=== PATIENT | male | born 1945 | race Caucasian/White ===

== ENCOUNTER 2016-08-17 17:25 | Inpatient (IN) | payer MEDICARE, OTHER ==
[~2016-08-17] VITALS: Ht 177.8 cm; Wt 101.9 kg
--- NOTE | ~2016-08-17 | CON ---
[place], [place] REPORT OF CONSULTATION NAME: CHASIDY RABAGO JR UNIT #: [id number] ROOM: [facility] DOCTOR: DANIELLE MALIK MD BIRTHDATE: [birth year] DOS: 08/18/2016 CHIEF COMPLAINT: "Morning". HISTORY OF PRESENT ILLNESS: This is a 71-year-old white male known to me from a previous psychiatric admission to the [facility] as well as his continued stay at [facility]. The patient has been increasingly more labile and agitated. He has been striking out and resistive to care. Because of the significant alteration in mental status, he was sent in to the Emergency Room at [facility] for medical clearance to be admitted eventually to the [facility]; however, when he was there, he was found to have a right submandibular mass and met sepsis criteria, so he was subsequently admitted to a medical floor. PAST MEDICAL HISTORY: Remarkable for hyperlipidemia, hypertension, vitamin D deficiency, dementia and a lengthy history of schizophrenia. MENTAL STATUS: Mental status this morning was somewhat limited and that he was resting in bed. He did awake just to say morning, but then fell back to sleep. There was no agitation or aggression. There was no mood lability noted. DIAGNOSES: Schizoaffective disorder and Alzheimer dementia. PLAN: I will restart him back on the Exelon patch 4.6 mg a day and start him on low-dose Latuda 40 mg at bedtime. I do not want to see him to compensate psychiatrically given his lengthy history. I will follow along regarding the workup of the sepsis and the submandibular mass and will re-intervene if need be. DANIELLE MALIK MD CM:CONSTR:REPORT OF CONSULTATION 0923 08/19/16 0137 interface
--- NOTE | ~2016-08-17 | PR ---
[place], [place] PROGRESS NOTE NAME: [id number] UNIT #: [id number] ROOM: [facility] DOCTOR: ANANYA EL MD,RAY BIRTHDATE: [birth year] DOS: 08/24/2016 PULMONARY PROGRESS NOTE SUBJECTIVE: The patient has been noted comfortable at this time, but noted with decreased mentation. He does open his eyes but there is no verbal communication. He has not been noted any acute hemodynamic instability. He has been successfully liberated from mechanical ventilator yesterday as well. OBJECTIVE: VITAL SIGNS: The patient was noted as normal temperature, respiratory rate of 20-24, heart rate 85-93, blood pressure 157/90-165/96. Intake is 820, the output was recorded 3600 mL, pulse oxygen saturation on 3 liters nasal cannula 94% saturation. The oxygen requirement increased from yesterday for this patient from 2 liters to 3 liters nasal cannula. HEENT: The patient extubated, edentulous status, status post extraction of the teeth. NECK: Supple. CARDIOVASCULAR SYSTEM: S1, S2 audible. LUNGS: Noted with [id number]-[id number] decreased breath sounds bilaterally. ABDOMEN: Soft, nontender. LABORATORY DATA: Arterial blood gas of the patient, which was done for this patient, pH of 7.48, pCO2 of 34.8, pO2 of 81.5 on 3 liter nasal cannula. CBC of the patient on 08/24/2016, WBC count 6.9, hemoglobin 12.3, hematocrit 36.8, platelet count was noted as normal. The chest x-ray of the patient that I ordered for the patient today assessment of the patient's current hypoxia noted with basilar area of atelectasis. IMPRESSION: 1. Interval development of area of atelectasis due to suboptimal secretion clearing for the patient with mucus impaction post-liberation from mechanical ventilation. 2. Acute hypoxic respiratory failure, which has been noted secondary to the above. PLAN OF TREATMENT: Monitor respiratory status closely. Use of the BiPAP for this patient if necessary in case of progressive worsening of the respiratory status will be done. Secretion ____ of the patient bronchial pulmonary toilet. Supportive care. Aspiration precaution for this patient because of decreased mentation. Avoid any medication resulting in change in the mental status. [place], [place] PROGRESS NOTE NAME: GEM STEELECHASIDY C UNIT #: [id number] ROOM: [facility] DOCTOR: RAY SIMON MD BIRTHDATE: [birth year] RAY HARE MD CM:PNTRANS [id number] RAY EL MD 08/25/16 0850 interface
--- NOTE | ~2016-08-17 | CON ---
[place], [place] REPORT OF CONSULTATION NAME: [id number] UNIT #: [id number] ROOM: 408 DOCTOR: DAVIDSON YBARRAOMAR BIRTHDATE: [birth year] DOS: 08/18/2016 ATTENDING PHYSICIAN: Dr. Mccallum. REASON FOR CONSULTATION: Right neck mass. HISTORY OF PRESENT ILLNESS: The patient is a 71-year-old white male with an underlying history of schizophrenia and dementia. The patient is a resident at a local senior care. He was brought to [facility] because of increased confusion and hallucinations. The patient was essentially nonverbal on presentation. He was noted to have a right submandibular mass. CT scan of the soft tissues of the neck was performed. The scan was without IV contrast. The scan demonstrated a mass in the right submandibular space with inflammatory changes and lymphadenopathy in the right neck. Differential diagnosis was neoplasm versus abscess. The patient did have a mild leukocytosis at presentation. He also had dehydration and protein-calorie malnutrition. The patient did meet sepsis criteria and has been treated with IV Levaquin and Unasyn. PAST MEDICAL HISTORY: Includes a history of schizophrenia, dementia, hypertension, hyperlipidemia, vitamin D deficiency, chronic pain. PAST SURGICAL HISTORY: There is no documented history of prior surgery. CURRENT MEDICATIONS: Latuda, levofloxacin, Unasyn, Exelon, Lovenox, and Zofran. ALLERGIES: LISINOPRIL. PHYSICAL EXAMINATION: VITAL SIGNS: The patient was examined on the fourth floor at bedside. His temperature is 98 axillary, pulse 91, respiratory rate 20, and blood pressure 133/95. GENERAL: The patient is nonverbal. HEENT: Examination of the oral cavity shows extremely poor dentition and very dry mucosa consistent with dehydration. The ears are clear. Nose shows no polyps or mucopurulence. NECK: Exam of the neck shows a right submandibular mass with mild erythema of the overlying skin. It is tender on palpation is suspicious for an underlying inflammatory process such as infection/abscess. HEART: Regular rate and rhythm. LUNGS: Clear to auscultation. IMPRESSION: Right submandibular space infectious process, most likely of dental etiology. RECOMMENDATIONS: I have spoken with the admitting service and recommended we proceed with an attempted incision and drainage of this right submandibular process. In addition, the patient should continue his current IV antibiotic regimen. The patient will benefit from dentistry consultation for full oral extractions because of his extremely poor dentition. [place], [place] REPORT OF CONSULTATION NAME: GEM STEELECHASIDY Nishi UNIT #: [id number] ROOM: [facility] DOCTOR: OMAR CEDEÑO MD BIRTHDATE: [birth year] OMAR CEDEÑO MD CM:CONSTR:REPORT OF CONSULTATION 1242 08/18/16 1304 interface
--- NOTE | ~2016-08-17 | CON ---
[place], [place] REPORT OF CONSULTATION NAME: CHASIDY RABAGO JR UNIT #: [id number] ROOM: 409 DOCTOR: VIJAY CHAPMAN ED.D (THEA) BIRTHDATE: [birth year] DOS: 08/27/2016 HISTORY OF PRESENT ILLNESS: The patient is a 71-year-old male referred by the hospitalist for competency evaluation. At the present time, competency patient is on the [facility], [facility]. This patient is presently a resident at [facility] and [place], [place]. PAST MEDICAL HISTORY: Pertinent for major neurocognitive disorder-dementia, submandibular mass, hypertension, diabetes mellitus type 2, sepsis and paranoid schizophrenia. MEDICATIONS: Include Lovenox, Zofran, potassium chloride, Lasix, amlodipine, Exelon, Apresoline, and albuterol. I do that I am unaware of any substance abuse issues with this patient. At the present time, this patient is awake and somewhat alert, but does not speak whatsoever. He cannot follow simple commands. He is clearly not competent to make informed healthcare decisions at this time. According to his chart, there is a healthcare power of occupational therapist assistant for financial issues, but none for healthcare. At the present time, it appears that an emergency guardianship should be completed for this patient for healthcare decisions. DIAGNOSES: 1. Major neurocognitive disorder -- Alzheimer's disease. 2. History of paranoid schizophrenia. Thank you very much for this consult. VIJAY CHAPMAN ED.D CM:CONSTR:REPORT OF CONSULTATION 0959 08/28/16 0100 interface
--- NOTE | ~2016-08-17 | CON ---
[place], [place] REPORT OF CONSULTATION NAME: CHASIDY RABAGO JR UNIT #: [id number] ROOM: [facility] DOCTOR: CHEPE WEISSDARELLE BIRTHDATE: [birth year] DOS: When I presented for consultation, the patient was in surgery. I went into the OR and did a quick intraoral evaluation. On exam, nonrestorable maxillary and mandibular dentition with multiple teeth caries to the gumline. The patient was positive for purulence from multiple sulcular areas. Discussed the patient's treatment with the patient's son, recommended full mouth extraction, the patient's son agreed. We will plan on reviewing this in my office, schedule to get the patient in to surgery on 08/19/2016. We will contact the floor to set up a time for surgery. WILMAN MO DMD CM:CONSTR:REPORT OF CONSULTATION 0819 08/23/16 0653 interface
--- NOTE | ~2016-08-17 | CON ---
[place], [place] REPORT OF CONSULTATION NAME: CHASIDY RABAGO JR [facility] [id number] UNIT #: [id number] ROOM: [facility] DOCTOR: DANIELLE MALIK MD BIRTHDATE: [birth year] DOS: 08/24/2016 PSYCHIATRIC CONSULT CHIEF COMPLAINT: The patient was nonverbal. HISTORY OF PRESENT ILLNESS: This is a 71-year-old white male who is known to me from a previous [facility] admission as well as his continued stay at the [facility]. The patient was to be admitted to the [facility] due to increased agitation and violent outbursts while at the long-term care facility, but he was to be screened through the Emergency Room at [facility] and found to have a submandibular mass and was ultimately admitted to the medical floor for further treatment. This was later discovered to be a significant dental abscess. The patient has been improving medically, but has now been very nonverbal. He will stare off into space and track and make eye contact, but has not been able to or willing to speak. PAST MEDICAL HISTORY: Remarkable for hyperlipidemia, hypertension, vitamin D deficiency, chronic pain, and schizoaffective disorder. MENTAL STATUS: The patient is alert and oriented to self. He does make eye contact. I attempted multiple times to engage him in questions, very simple questions, yes or no questions, and all he did would be track me in the room as I move from side to side. It is unclear whether or not this is catatonia, severe paranoia or he is still medically compromised and is not able to speak. DIAGNOSIS: Schizoaffective disorder. PLAN: Knowing his baseline and the severity of his schizophrenia, I am going to go ahead and reinstitute an antipsychotic. Given the fact that he may not be totally compliant with it, I will start Risperdal M-Tab 1 mg twice daily. He had been on Invega Sustenna in the past, so this is a derivative of the Invega. He should tolerate this well. I will go ahead and push the Exelon patch from 4.6 to 9.5 mg a day to combat some of the symptoms of the dementia. Once you feel that he is medically cleared, if he remains in this state of being nonverbal, I would transfer him down to the [facility] for further evaluation and treatment. DANIELLE MALIK MD CM:CONSTR:REPORT OF CONSULTATION 0931 08/25/16 0148 interface
--- NOTE | ~2016-08-17 | PR ---
[place], [place] PROGRESS NOTE NAME: CHASIDY RABAGO JR UNIT #: [id number] ROOM: [facility] DOCTOR: RAY SIMON MD BIRTHDATE: [birth year] DOS: 08/25/2016 PULMONARY PROGRESS NOTE SUBJECTIVE: The patient was still noted with change in mental status, responsible, arousable to vocal commands, but does not have any verbal communication, remains mute. OBJECTIVE: VITAL SIGNS: Showed normal temperature, respiratory rate of 24-33. The heart rate ranges between 97 and 112, blood pressure 155/81, 156/97. The pulse oxygen saturation for the patient recorded on 2 liters nasal cannula, 98% saturation. HEENT: Examination shows head was atraumatic. Eyes nonicterus. NECK: Supple. CARDIOVASCULAR: S1, S2 is audible. LUNGS: The patient was noted without any wheeze or crackles at the present time. ABDOMEN: Soft and nontender. LABORATORY DATA: CBC of this morning, hemoglobin 13.9, hematocrit 40.7, WBC count normal, platelet count was normal. CMP this morning, BUN 27, creatinine was normal, glucose 224. Potassium 3.4. Arterial blood gas, pH of 7.47, pCO2 of 33.9, pO2 of 131. IMPRESSION: The patient who has been currently noted with acute hypoxic respiratory failure, intermittent tachypnea, change in mental status, status post liberation from mechanical ventilator with basilar area of atelectasis with some fluid formation for the patient was noted secondary to hypoventilatory status. PLAN OF TREATMENT: The patient has been ordered the BiPAP with the settings of 14/8 to maintain saturation 90% or greater. Aspiration precautions. Other supportive therapy, plan and management. Continue monitoring the current pulmonary status. Usual care. Other supportive care to be continued. Usual medical therapies. Continue psychiatric evaluation and followup. [place], [place] PROGRESS NOTE NAME: CHASIDY RABAGO JR UNIT #: [id number] ROOM: [facility] DOCTOR: RAY SIMON MD BIRTHDATE: [birth year] RAY HARE MD CM:PNTRANS 1127 RAY EL MD 08/26/167 interface
--- NOTE | ~2016-08-17 | PR ---
[place], [place] PROGRESS NOTE NAME: CHASIDY RABAGO JR UNIT #: [id number] ROOM: 409 DOCTOR: RAY SIMON MD BIRTHDATE: [birth year] DOS: 08/27/2016 PULMONARY PROGRESS NOTE SUBJECTIVE: He has been comfortably resting on the bed. The mental status has been noted variable. The patient did open his eyes with vocal commands this morning, does have signs of respiratory distress, oxygen supplementation given by the nasal cannula. OBJECTIVE: VITAL SIGNS: Shows normal temperature, respiratory rate of 20, heart rate 105, blood pressure 150/90. Pulse oxygen saturation on 3 liters nasal cannula 96% saturation. HEENT: Examination shows no new changes. NECK: Supple. CARDIOVASCULAR: S1, S2 is audible. LUNGS: The patient was noted without any wheezing or crackles at this time. ABDOMEN: Soft, nontender. LABORATORY DATA: This morning, the arterial blood gas, pH of 7.44, pCO2 of 38, pO2 of 98.6. BMP this morning, BUN 37, creatinine 0.65, glucose 143. CBC of the patient essentially noted as grossly normal. IMPRESSION: 1. The patient with change in his mental status. The patient's decreased mentation still has been noted unchanged. 2. The patient with acute respiratory failure, which has been noted stable. 3. Acute dysphagia as well. 4. Status post liberation from mechanical ventilation. PLAN OF TREATMENT: No changes from the pulmonary standpoint. Continue the patient on current therapy, plan of management as previously. Monitor mental status. Continue with the known infection for this patient. [place], [place] PROGRESS NOTE NAME: CHASIDY RABAGO JR Nishi UNIT #: [id number] ROOM: 409 DOCTOR: RAY SIMON MD BIRTHDATE: [birth year] RAY HARE MD CM:PNTRANS [phone] RAY EL MD 08/28/16 032 interface
--- NOTE | ~2016-08-17 | O ---
[place], [place] OPERATIVE NOTE NAME: CHASIDY RABAGO JR UNIT #: [id number] ROOM: [facility] DOCTOR: EFRA LINK MD BIRTHDATE: [birth year] DOS: 08/18/2016 PREOPERATIVE DIAGNOSES: 1. Sepsis. 2. Right submandibular mass. 3. Dental abscess. POSTOPERATIVE DIAGNOSES: 1. Sepsis. 2. Right submandibular mass. 3. Dental abscess. PROCEDURE: Exploration of right submandibular region with biopsy of right submandibular mass. SURGEON: Efra Link MD ANESTHESIA: General endotracheal. ESTIMATED BLOOD LOSS: 25 mL. SPECIMENS: One specimen of the right submandibular mass was submitted to pathology for histologic analysis. DRAINS: None. COMPLICATIONS: None. INDICATIONS: The patient is a 71-year-old white male who is a intermediate resident, who was brought to [facility] for psychiatric evaluation and possible admission to the Behavioral Health Unit. During the patient's evaluation in the Emergency Department, he was noted to be somewhat obtunded and had a 3 cm right submandibular mass identified on CT scan. The patient's history was consistent with increasing combative aggressive behavior and mental status changes. The patient did have a leukocytosis and was admitted to the hospital on IV antibiotics for sepsis of undetermined etiology. CT scan of soft tissues of the neck demonstrated a heterogeneous mass in the right submandibular space with associated inflammatory changes and skin thickening. The patient had right-sided cervical lymphadenopathy. There radiological differential diagnosis included neoplasm versus abscess. Decision was made to explore the right submandibular region. OPERATIVE FINDINGS AND PROCEDURE: The patient was taken to the OR where general endotracheal anesthesia was performed. The right neck was prepped and draped in a standard sterile fashion. A 4 cm incision was made in the right submandibular region through skin and subcutaneous tissue. Dissection was continued until the submandibular mass was identified. A biopsy was obtained and submitted to pathology for histologic analysis. There was no silvino purulent or evidence of abscess. Minor bleeding was controlled with electrical cautery. Because of the minimal blood loss, no drain was placed. The wound was closed in a layered [place], [place] OPERATIVE NOTE NAME: CHASIDY RABAGO JR UNIT #: [id number] ROOM: [facility] DOCTOR: EFRA LINK MD BIRTHDATE: [birth year] fashion using 3-0 Vicryl and 5-0 monofilament and a sterile dressing was applied. Dentistry was also consulted because of the patient's poor dentition and suspected dental abscess. My recommendation was that the patient be evaluated by Dr. Kevon Bashir for full dental extraction. At the end of my portion of the case, the patient was subsequently examined by Dr. Bashir and consideration was given for dental extractions. The patient will be left intubated and admitted to the Intensive Care Unit overnight and IV antibiotic therapy will continue. EFRA LINK MD CM:OPRECORD:OPERATIVE NOTE [id number] EFRA LINK MD 08/18/16 1835 interface
--- NOTE | ~2016-08-17 | PR ---
[place], [place] PROGRESS NOTE NAME: CHASIDY RABAGO JR [facility] #: [id number] UNIT #: [id number] ROOM: [facility] DOCTOR: ANANYA EL MD,RAY BIRTHDATE: [birth year] DOS: 08/20/2016 PULMONARY CRITICAL CARE MANAGEMENT SUBJECTIVE: The patient remains on mechanical ventilator, underwent a complete excision of the teeth. He has been noted some bleeding which has been noted intermittently. The patient has not been noted with any symptoms of respiratory distress. The patient continued on mechanical ventilation at this time. Feeding for the patient started, which has been tolerated by the patient for the nutrition support. Ventilator bundle management was continued. No hemodynamic instability was noted. OBJECTIVE: VITAL SIGNS: Normal temperature, respiratory rate 20-16, heart rate 95-86, blood pressure 130/86-124/63. Intake for the patient recorded as 3200 mL, output 1100 mL, pulse oxygen saturation 35% oxygen 98% saturation. HEENT: Shows head was atraumatic. Eyes nonicterus. NECK: Supple. CARDIOVASCULAR: S1, S2 audible. LUNGS: Remains clear. ABDOMEN: Soft, nontender. EXTREMITIES: Show no edema. LABORATORY DATA: CBC today: WBC count 10, hemoglobin 12.5, hematocrit 37.8, platelet count for the patient 167,000. The anatomical pathology for this patient of the current excision of the mass noted with inflammatory tissue without any evidence of malignancy described by the pathologist report for the biopsy for this patient from the right mandibular area. Arterial blood gas this morning, assist control modem pH of 7.40, pCO2 of 36, pO2 of 180 on 45% oxygen. BMP is noted with normal BUN and creatinine. Potassium noted 3.3, mildly decreased. Urine culture showed no bacterial growth. The chest x-ray done this morning for the patient was reviewed and shows endotracheal tube in appropriate position without any acute pulmonary infiltration. IMPRESSION: The patient who has been currently noted stable at the present time for this patient with acute respiratory failure secondary upper airway surgery for this patient at this time including excision of the mass and biopsy for the patient of the right mandible area as well as complete excision of the teeth yesterday. Some bleeding has been noted in the mouth intermittently, but gradual reduction has been noted for the patient in the last 24 hours after surgery. Basilar area of atelectasis of the patient has been resolved. PLAN OF TREATMENT: The patient will remain intubated for the next 24 hours. The assessment for the patient has been already done by the dental surgeon. The bleeding should stop sometime later today for the patient and probably will be considered most likely safe for liberation from mechanical ventilation after that, possibly in the morning. The patient will be monitored closely. The ventilator bundle management to continue in progress. Continue the feeding for this patient as well. Usual care. All other supportive therapy, plan of management. [place], [place] PROGRESS NOTE NAME: CHASIDY RABAGO JR UNIT #: [id number] ROOM: [facility] DOCTOR: ANANYA EL MD,RAY BIRTHDATE: [birth year] Total time for pulmonary critical evaluation and management to be added in the note for the patient is 33 minutes. RAY HARE MD CM:PNTRANS 1413 [id number] RAY EL MD 08/21/16 0537 interface
--- NOTE | ~2016-08-17 | O ---
[place], [place] OPERATIVE NOTE NAME: CHASIDY RABAGO JR Nishi UNIT #: [id number] ROOM: [facility] DOCTOR: CHEPE WEISSWILMAN BIRTHDATE: [birth year] DOS: 08/19/2016 PREOPERATIVE DIAGNOSES: 1. Nonrestorable maxillary and mandibular dentition. 2. Dementia. 3. Severe stomatitis. POSTOPERATIVE DIAGNOSES: 1. Nonrestorable maxillary and mandibular dentition. 2. Dementia. 3. Severe stomatitis. ANESTHESIA: General anesthesia with endotracheal intubation. FLUIDS: 1200 mL. ESTIMATED BLOOD LOSS: 300 mL. COMPLICATIONS: None. CONDITION: To ICU, stable. DESCRIPTION OF PROCEDURE: The patient was brought to the OR and placed in supine position. IV and EKG lines were placed. Endotracheal intubation and general anesthesia was administered. The patient was prepped and draped for oral procedures. Risks and benefits were explained to the patient's son prior to surgery. Clinical exam and x-rays taken determined nonrestorable maxillary and mandibular dentition, extensive purulence from multiple teeth that are carious to the gumline. PROCEDURES PERFORMED: Complete extractions of teeth numbers 2, 4, 5, 6, 7, 8, 9, 10, 11, 12, 13, 14, 18, 21, 22, 23, 24, 25, 26, 27, 28, 29 31. Full-thickness flaps in all 4 quadrants with moderate alveoplasty. Teeth numbers 12 and 5 fractured with root tip removal as well as tooth number 14 with complete root retrieval. Gelfoam placed in all sockets and sutured with 4-0 chromic. Lavaged x 2. Throat pack removed. The patient left the OR in good condition and went to the ICU. [place], [place] OPERATIVE NOTE NAME: GEM STEELENATALIECHASIDY Nishi UNIT #: [id number] ROOM: [facility] DOCTOR: CHEPE WEISSWILMAN BIRTHDATE: [birth year] WILMAN MO DMD CM:OPRECORD:OPERATIVE NOTE 1725 19 WILMAN CHEPE WEISS 08/23/16 0653 interface
--- NOTE | ~2016-08-17 | PR ---
[place], [place] PROGRESS NOTE NAME: CHASIDY RABAGO JR [facility] #: [id number] UNIT #: [id number] ROOM: [facility] DOCTOR: RAY SIMON MD BIRTHDATE: [birth year] DOS: 08/23/2016 PULMONARY CRITICAL CARE EVALUATION AND MANAGEMENT SUBJECTIVE: The patient was seen and examined on 08/23/2016. The patient's condition was assessed. The patient discussed with the nursing staff for this patient. He has been continued on mechanical ventilation. The patient has not been attempted for liberation from mechanical ventilation. There was no bleeding noted in the mouth. The patient has not been noted in any hemodynamic instability as well. Low-dose Diprivan. The patient was continued on 30 mcg per kilogram of intravenous Diprivan administration at this time. With the sedation vacation, the mental status has been described to be normal. OBJECTIVE: VITAL SIGNS: For the patient which has been recorded shows temperature was noted as normal, respiratory rate 15-18, heart rate 92-91, blood pressure 153/91-142/83. Intake for the patient recorded as 2800 mL, output 1300 mL, positive fluid balance 1500 mL. Pulse oxygen saturation 93% saturation recorded on 30% oxygen supplementation. HEENT: The patient remained orally intubated. There was no bleeding. Dental status after extraction of teeth the nasogastric tube is in place. CARDIOVASCULAR: S1, S2 is audible. LUNGS: The patient was noted without any wheezing or crackles at the present time. ABDOMEN: Flat, soft, nontender. Bowel sounds present. LABORATORY DATA: Arterial blood gas yesterday, the patient noted with pH of 7.42, pCO2 of 41, pO2 of 105. ABG this morning, assist control mode same satting with 30% oxygen, pH of 7.44, pCO2 of 38, pO2 of 99.3. CBC this morning: WBC count was normal at 5.8, hemoglobin 12, hematocrit 37.0, platelet count of the patient noted 197,000. CMP this morning, normal BUN and creatinine. Glucose 265. Albumin 2.3. Chest x-ray of the patient that was done on 08/23/2016 does not show any acute abnormalities. Endotracheal tube and NG tube are noted in appropriate position. IMPRESSION: 1. Acute respiratory failure for this patient, which seem to be stable at this time. 2. Status post extraction of the teeth as well. 3. Biopsy of the patient on the mandibular area noted with inflammatory condition of the skin. 4. Hyperglycemia. The patient with history of diabetes mellitus as well. 5. Suspected moderate protein-calorie malnutrition with reduction in the albumin. PLAN OF TREATMENT: Discontinue sedation completely. Once the patient noted awake, he will be started on CPAP 5, pressure support of 10 for a couple of hours. After that, assess the patient for possible consideration of liberation from mechanical ventilation. No other change in treatment to be continued. Until the patient is extubated, he will be continued on mechanical ventilator [place], [place] PROGRESS NOTE NAME: GEM JRCHASIDY Nishi UNIT #: [id number] ROOM: [facility] DOCTOR: ANANYA EL MD,RAY BIRTHDATE: [birth year] bundle treatment. Usual care. Further care and plan of management for the patient as previously. Usual treatments and therapies. Total time pulmonary critical evaluation and management was 32 minutes. RAY HARE MD CM:PNTRANS [id number] RAY EL MD 08/25/16 1010 interface
--- NOTE | ~2016-08-17 | CON ---
[place], [place] REPORT OF CONSULTATION NAME: CHASIDY RABAGO JR [facility] #: [id number] UNIT #: [id number] ROOM: [facility] DOCTOR: RAY SIMON MD BIRTHDATE: [birth year] DOS: 08/19/2016 PULMONARY CONSULTATION EVALUATION AND MANAGEMENT REQUESTED BY: Hospitalist services. REASON FOR CONSULTATION: Assess the patient for current acute respiratory failure for patient after the biopsy for the patient lymph node for the patient from the area of right mandible and the lymph node excision. HISTORY OF PRESENT ILLNESS: This is a 71-year-old white male for the patient who has been known with psychiatric problem and was treated in the Behavioral Health Unit as well. The patient has been admitted to the hospital for the patient because of increased confusional status with increased lethargy for this patient as well. The patient also noted nonverbal for this patient as well. He has been admitted to the hospital for the patient for further assessment. The patient was also described symptoms of hallucination. He was noted the right mandibular mass for the patient. CT scan of the neck for the patient was performed with intravenous contrast, which is described as a mass which is describing right submandibular space with inflammatory changes and lymphadenopathy in the right neck. Possibility of malignancy versus abscess was considered. The patient underwent a biopsy of the patient of the right mandible for the patient as well as excision of lymph nodes in the neck. The patient has been intubated and procedure performed under general anesthesia. Possibility of upper airway edema for the patient was suspected. The patient was kept on intubation. He was also planned for possibility of extraction of all teeth to be done by the dental surgeon planned for this morning. The patient was started on IV Diprivan, continued on mechanical ventilation at this time. Oxygen supplementation has been decreased for the patient after the arterial blood gas assessment, gradual reduction to 45%. The patient was not noted excessive secretion production from the endotracheal tube were ____ findings of hemoptysis for the patient since post-intubation. Remaining systems could not be reviewed for patient since the patient is intubated currently noted on the mechanical ventilator, remaining history has been essentially obtained for the patient review of the medical record of the patient documentation by the other physician records for the patient for current hospitalization. PAST MEDICAL HISTORY: For the patient was reported as, 1. History of chronic dementia. 2. Schizophrenia and behavioral disorder. 3. Essential hypertension. 4. Hyperlipidemia. 5. Vitamin D deficiency. 6. Chronic pain. 7. History of type 2 diabetes mellitus. 8. History of possible congestive heart failure. 9. History of allergic rhinitis. 10. History of BPH. SURGICAL HISTORY: For the patient was noted as. [place], [place] REPORT OF CONSULTATION NAME: CHASIDY RABAGO JR UNIT #: [id number] ROOM: [facility] DOCTOR: ANANYA EL MD,RAY BIRTHDATE: [birth year] 1. Biopsy of the right mandible for this patient, excision of potential mass for the patient in the right mandible area for this patient and the lymph nodes excision yesterday. 2. Intubation and mechanical ventilation for the patient on 08/18/2016. SOCIAL HISTORY: The patient was not known about tobacco use, alcohol or illicit drug use at the present time. Further history could not be obtained. FAMILY HISTORY: Unknown. MEDICATIONS: Previously from the [facility] were noted use of amantadine, Norvasc, Lipitor, vitamin D, Depakote, Flonase, Lasix, hydralazine, Victoza shots, losartan, metformin, Remeron, Invega, potassium chloride, Seroquel, rivastigmine, Flomax and tobramycin. DRUG ALLERGY HISTORY: ALLERGY TO LISINOPRIL. PHYSICAL EXAMINATION: GENERAL: A 71-year-old white male, currently sedated on the mechanical ventilator. The height for the patient recorded on current admission as 5 feet 10 inches, weight of 224 pounds, BMI 32.2. The patient is currently intubated, noted on mechanical ventilation and effectively sedated. VITAL SIGNS: For the patient shows normal temperature in the last 24 hours, respiratory rate 12-18, heart rate 98-94, blood pressure 139/92-111/79. Pulse oxygen saturation 45% oxygen 98% saturation on assist controlled mode of mechanical ventilation. HEENT: As mentioned, the patient is currently intubated. Poor surgical changes noted in the right mandibular area. Mild swelling at that area was noted. There was no abnormal bleeding. Orogastric tube is in place. CARDIOVASCULAR SYSTEM: S1, S2 is audible. LUNGS: Noted without any wheezing or crackles. Mild decreased breath sounds bilaterally. ABDOMEN: Soft, flat, nontender, bowel sounds present. EXTREMITIES: Show no edema, clubbing or cyanosis. CENTRAL NERVOUS SYSTEM: Could not be examined. The patient was not reported any focal neurologic deficit prior to the current surgery. SKIN: For this patient showed no lesions or rashes. MUSCULOSKELETAL SYMPTOMS: For the patient does not show any obvious major deformities. LABORATORY DATA: Labs on this patient. The CBC of the patient that was done yesterday, WBC count 13.8, hemoglobin, hematocrit and platelet count was normal. The PT/PTT yesterday were noted INR of 1.2 normal, PTT normal. CMP on 08/18 for the patient, BUN 26, creatinine was normal. The troponin for the patient noted as normal. Arterial blood gas of the patient yesterday after the surgery completion in the Intensive Care Unit transfer on 50% oxygen, pH of 7.39, pCO2 of 37, pO2 of 126. Arterial blood gas for this morning on 45% oxygen, pH of 7.41, pCO2 of 34, pO2 of 138. The BMP, BUN and creatinine for the patient was noted as normal. CBC this morning, WBC count of 12.3, hemoglobin 13.7, and hematocrit 41.5. Blood culture for the patient from the 9th for this month, [place], [place] REPORT OF CONSULTATION NAME: CHASIDY RABAGO JR UNIT #: [id number] ROOM: [facility] DOCTOR: ANANYA EL MD,[facility] BIRTHDATE: [birth year] preliminary showed no bacterial growth. Final culture results remains pending. Chest x-ray post-intubation for the patient noted endotracheal tube and the NG tube in appropriate position. CT scan of the neck for the patient on 08/17 reported by the radiologist for the patient report of heterogenous appearing mass of the patient right submandibular space of the patient measured 2.7 x 2.9 cm in size. Skin thickening and fat stranding for the patient were described at level 2 and 3 of the right side with cervical lymph nodes. Lymph node measured 7 mm in size. The submandibular and parotid gland for the patient and the left side of the neck examination noted completely normal. Possibility of abscess versus neoplasm was discussed. IMPRESSION: 1. The patient who has been currently noted with acute hypoxic respiratory failure for the patient after the current surgery and manipulation of the upper neck for this patient and potential edema for the patient. 2. History of chronic dementia for the patient as well with multiple psychiatric and behavioral problems as well. 3. Mild leukocytosis for this patient. 4. Rule out abscess formation and inflammatory changes in the current area with the malignancy of the right mandible. 5. History of type 2 diabetes mellitus, essential hypertension and others as listed in the past history including history of allergic rhinitis. PLAN OF TREATMENT: The patient will be undergoing the other surgical intervention as removal of the teeth for this patient. The patient will remain intubated for the next 24 hours for assessment of the upper airway for the patient to be done tomorrow morning for potential liberation from mechanical ventilation. The feeding will be started for the patient and ventilator bundle management for the patient has been initiated as well. Bronchodilators for the patient if necessary to help mobilize secretion from the airways. Usual care. Other treatment and plan of management for this patient as in progress. Supportive care. Other therapy, plan and management. Addition of Peridex was given for the patient through the mouth as well for this patient as well as a part of the ventilator bundle management. Other care and therapies as in progress. Usual care. Total time for pulmonary critical care evaluation and management was 34 minutes. RAY HARE MD CM:CONSTR:REPORT OF CONSULTATION 1723 08/20/16 1549 interface
--- NOTE | ~2016-08-17 | EKG ---
[place], [place] ELECTROCARDIOGRAM REPORT NAME: CHASIDY RABAGO JR UNIT #: [id number] ROOM: [facility] DOCTOR: FREDDY SERRA MD BIRTHDATE: [birth year] DOS: 08/17/2016 TIME: 1826. FINDINGS: Sinus rhythm with frequent premature atrial contractions, rate of 110, possible previous inferior wall myocardial infarction, poor precordial R wave progression. Abnormal electrocardiogram. FREDDY SERRA MD CM:EKGRPT:ELECTROCARDIOGRAM REPORT [id number] 27 FREDDY SERRA MD
--- NOTE | ~2016-08-17 | PR ---
[place], [place] PROGRESS NOTE NAME: CHASIDY RABAGO JR UNIT #: [id number] ROOM: 409 DOCTOR: RAY SIMON MD BIRTHDATE: [birth year] DOS: 08/26/2016 PULMONARY PROGRESS NOTE SUBJECTIVE: The patient has been noted without any acute respiratory complaints at this time. He has been noted more awake this morning. The patient was noted with dysphagia, was recommended honey thick consistency diet as well. OBJECTIVE: VITAL SIGNS: For the patient, which has been recorded shows the temperature recorded as normal, respiratory rate of 21-24, heart rate of 96, blood pressure 132/88. Pulse oxygen saturation of the patient on 4 L nasal cannula 96% saturation recorded. HEENT: Examination shows head was atraumatic. Eyes nonicterus. NECK: Supple. CARDIOVASCULAR: S1, S2 is audible. LUNGS: The patient was noted without any wheezing or crackles at the present time. ABDOMEN: Soft, nontender. LABORATORY DATA: CT of the chest yesterday shows only small pleural fluid for the patient without any acute pulmonary abnormalities. CT scan of the head for this patient was also done yesterday, was noted without any acute intracerebral problems. IMPRESSION: 1. 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 2. Acute respiratory failure of the patient, status post extubation and liberation from mechanical ventilator with previous dental extraction. 3. Small pleural fluid for the patient secondary to fluid overload. The patient would not require any intervention such as thoracentesis or others. PLAN: Continuation of the supportive therapy, plan and management as in progress. Aspiration precautions with modified diet for dysphagia. [place], [place] PROGRESS NOTE NAME: CHASIDY RABAGO JR UNIT #: [id number] ROOM: 409 DOCTOR: RAY SIMON MD BIRTHDATE: [birth year] RAY HARE MD CM:PNTRANS [id number] RAY EL MD 08/26/16 2311 interface
[2016-08-17 17:25] VITALS: BP 116/93
[~2016-08-17 17:25] MED LIST: ACETAMINOPHEN325 M2 PO; AMANTADINE HCL100 M1 PO; ATORVASTATIN CA10 M1 PO; BENZTROPINE ME0.5 MG PO; BIOTENE ORAL44.3 ML MM; CLEARATADINE10 MG PO; DEPAKOTE DR500 MG PO; DEPAKOTE500 M1 PO; EXELON4.6 MG/24 TD; FLUTICASON0.05 MG/AC NAS; FUROSEMIDE20 M1 PO; GLUCOPHAGE500 M1 PO; HYDRALAZINE10 MG PO; HYDROCODONE BIT1 T11 PO; INVEGA SUSTENN117 MG IM; INVEGA SUSTENN156 MG IM; LACTULOSE10 GM/151 PO; MELATONIN5 M7 PO; MIRTAZAPINE15 M2 PO; NORVASC5 MG PO; OYSTERCAL-D 5001 TAB PO; PERPHENAZINE4 M1 PO; POTASSIUM CHLO10 ME4 PO; REMERON SOLTAB30 MG PO; RISPERIDONE M-TA1 MG PO; SEROQUEL100 MG PO; SEROQUEL200 MG PO; TAMSULOSIN HCL0.4 MG PO; TOBREX OPHTH S2.5 ML OPH; TRIAMTERENE & H1 CAP PO; TRIHEXYPHENIDYL2 M3 PO; VICTOZA 3-PAK6 MG/ML SC; VITAMIN D50000 I3 PO; VITAMIN D50000 UNIT PO
[2016-08-17 18:15] LABS: HEMATOCRIT 46.7 % (42.0-52.0); HEMOGLOBIN 15.9 g/dl (14.0-18.0); MEAN CELL VOLUME 98.5 fl (80.0-94.0); MEAN CORPUSCULAR HGB 33.5 pg (27.0-31.0); MEAN PLATELET VOLUME 11.7 fl (9.6-12.3); PLATELET COUNT AUTOMATED 204 10*3/uL (130-400); RED BLOOD COUNT 4.74 10*6/uL (4.50-5.90); RED CELL DISTRI WIDTH 17.2 % (0-14.5); WHITE BLOOD COUNT 13.3 10*3/uL (4.8-10.8)
[2016-08-17 18:26] LABS: INTERNATIONAL NORM RATIO 1.2 (2.0-3.5); PROTHROMBIN TIME 12.4 SECONDS (9.0-12.4)
[2016-08-17 18:38] LABS: ALBUMIN 2.7 gm/dl (3.1-4.5); BILIRUBIN, TOTAL 0.7 mg/dl (0.2-1.0); BUN 26 mg/dl (7-24); C-REACTIVE PROTEIN 8.56 MG/DL (0-0.3); CARBON DIOXIDE 29 mmol/L (21-32); CHLORIDE 108 mmol/L (98-107); EST GLOM FILT AFRICAN AMERICAN > 60 ml/min; GLUCOSE 114 mg/dL (65-99); POTASSIUM 3.9 mmol/L (3.5-5.1); SGOT/AST 15 IU/L (3-35); SGPT/ALT 18 U/L (12-78); SODIUM 147 mmol/L (136-145); TOTAL PROTEIN 7.6 gm/dL (6.4-8.2)
[2016-08-17 18:39] LABS: ALKALINE PHOSPHATASE 67 U/L (45-117); CKMB 1.7 ng/ml (0.5-3.6); CPK 86 U/L (39-308)
[2016-08-17 18:43] LABS: TROPONIN I < 0.015 ng/ml (<0.045)
[2016-08-17 18:52] LABS: EOSINOPHIL # 0.1 10*3/uL (0-0.4); EOSINOPHILS 1 % (1-4); LYMPHOCYTE # 1.7 10*3/uL (1.3-4.4); MONOCYTE # 2.1 10*3/uL (0.1-1.0); NEUTROPHIL # 9.3 10*3/uL (2.3-7.9); NEUTROPHILS 70 % (47-73); PLATELET SUFFICIENCY NORMAL (NORMAL); TOTAL CELLS COUNTED 100 #CELLS
[2016-08-17 19:27] VITALS: BP 124/95
[2016-08-17 19:50] LABS: BILIRUBIN 1+ (NEGATIVE); BLOOD 2+ (NEGATIVE); CLARITY SL CLOUDY (CLEAR); COLOR YELLOW (YELLOW); GLUCOSE NEGATIVE (NEGATIVE); KETONE TRACE (NEGATIVE); LEUKO ESTERASE NEGATIVE (NEGATIVE); NITRITE NEGATIVE (NEGATIVE); PROTEIN NEGATIVE (NEGATIVE); UROBILINOGEN >= 8.0 E.U./dl (0.2-1.0)
[2016-08-17 20:18] LABS: EPITHELIAL CELLS 0-2; RBC 16-20 rbc/hpf (0-2); URINE REFLEX COMMENT YES (NO)
[2016-08-17 22:50] VITALS: BP 137/69
[2016-08-17] MEDS ORDERED: HALLS COUGH DROPS PO (23:19)
[2016-08-17] MEDS ORDERED: ROBITUSSIN DM 101 OZ PO (23:20)
[2016-08-17] MEDS ORDERED: NOVOFINE DEVI (23:29)
[2016-08-18] VITALS (7 sets, daily range): BP systolic 111–139; BP diastolic 71–95
[2016-08-18 06:19] LABS: HEMATOCRIT 43.1 % (42.0-52.0); HEMOGLOBIN 14.7 g/dl (14.0-18.0); MEAN CELL VOLUME 99.3 fl (80.0-94.0); MEAN CORPUSCULAR HGB 33.9 pg (27.0-31.0); MEAN CORPUSCULAR HGB CONC 34.1 g/dl (33.0-37.0); MEAN PLATELET VOLUME 11.9 fl (9.6-12.3); PLATELET COUNT AUTOMATED 200 10*3/uL (130-400); RED BLOOD COUNT 4.34 10*6/uL (4.50-5.90); RED CELL DISTRI WIDTH 17.1 % (0-14.5); WHITE BLOOD COUNT 13.8 10*3/uL (4.8-10.8)
[2016-08-18 06:32] LABS: HEMOGLOBIN A1c 6.3 % (4.8-5.6)
[2016-08-18 06:45] LABS: ALBUMIN 2.3 gm/dl (3.1-4.5); ALKALINE PHOSPHATASE 60 U/L (45-117); BILIRUBIN, TOTAL 0.7 mg/dl (0.2-1.0); BUN 26 mg/dl (7-24); CARBON DIOXIDE 30 mmol/L (21-32); CHLORIDE 110 mmol/L (98-107); CHOLESTEROL 115 mg/dL (<200); EST GLOM FILT AFRICAN AMERICAN > 60 ml/min; GLUCOSE 99 mg/dL (65-99); HDL CHOLESTEROL 50 mg/dl (40-60); LDL CHOLESTEROL 42 mg/dL (9-159); PHOSPHOROUS 3.5 mg/dL (2.5-4.9); POTASSIUM 3.5 mmol/L (3.5-5.1); SGOT/AST 12 IU/L (3-35); SGPT/ALT 17 U/L (12-78); SODIUM 148 mmol/L (136-145); TOTAL PROTEIN 6.9 gm/dL (6.4-8.2); TRIGLYCERIDES 114 mg/dl (<150); VLDL CHOLESTEROL 23 mg/dL (6-40)
[2016-08-18 06:48] LABS: EOSINOPHIL # 0.1 10*3/uL (0-0.4); EOSINOPHILS 1 % (1-4); LYMPHOCYTE # 1.9 10*3/uL (1.3-4.4); MONOCYTE # 2.1 10*3/uL (0.1-1.0); NEUTROPHIL # 9.7 10*3/uL (2.3-7.9); NEUTROPHILS 70 % (47-73); PLATELET SUFFICIENCY NORMAL (NORMAL); TOTAL CELLS COUNTED 100 #CELLS
[2016-08-18 06:49] LABS: INTERNATIONAL NORM RATIO 1.2 (2.0-3.5); PROTHROMBIN TIME 13.2 SECONDS (9.0-12.4)
[2016-08-18 06:50] LABS: THYROID STIM HORMONE (HS) 0.641 uIU/ml (0.358-4.75)
[2016-08-18 07:30] LABS: FOLIC ACID 9.07 ng/mL (>5.38); VITAMIN D, 25-HYDROXY 58.7 ng/mL (30-100)
[2016-08-18 20:36] LABS: ABG BASE EXCESS -1.5 mmol/L (-2.0-2.0); ABG CO2 CONTENT 23.7 mmol/L (23-27); ABG HCO3 22.5 mmol/l (22-26); ARTERIAL BLOOD GAS PH 7.398 (7.35-7.45)
[2016-08-19] VITALS (13 sets, daily range): BP systolic 126–182; BP diastolic 68–110
[2016-08-19 05:50] LABS: ABG BASE EXCESS -1.3 mmol/L (-2.0-2.0); ABG CO2 CONTENT 23.2 mmol/L (23-27); ABG HCO3 22.1 mmol/l (22-26); ABG TEMPERATURE 98.3 F (98.0-99.0); ARTERIAL BLOOD GAS PH 7.419 (7.35-7.45)
[2016-08-19 06:26] LABS: HEMATOCRIT 41.5 % (42.0-52.0); HEMOGLOBIN 13.7 g/dl (14.0-18.0); MEAN CELL VOLUME 101.2 fl (80.0-94.0); MEAN CORPUSCULAR HGB 33.4 pg (27.0-31.0); PLATELET COUNT AUTOMATED 172 10*3/uL (130-400); RED CELL DISTRI WIDTH 17.2 % (0-14.5); WHITE BLOOD COUNT 12.3 10*3/uL (4.8-10.8)
[2016-08-19 06:49] LABS: BUN 18 mg/dl (7-24); CARBON DIOXIDE 27 mmol/L (21-32); CHLORIDE 110 mmol/L (98-107); EST GLOM FILT AFRICAN AMERICAN > 60 ml/min; GLUCOSE 90 mg/dL (65-99); POTASSIUM 3.6 mmol/L (3.5-5.1); SODIUM 147 mmol/L (136-145)
[2016-08-19 07:26] LABS: ACANTHOCYTES FEW; BASOPHIL # 0.1 10*3/uL (0-0.1); BASOPHILS 1 % (0-1); EOSINOPHIL # 0.1 10*3/uL (0-0.4); EOSINOPHILS 1 % (1-4); LYMPHOCYTE # 1.2 10*3/uL (1.3-4.4); MONOCYTE # 1.8 10*3/uL (0.1-1.0); NEUTROPHILS 73 % (47-73); TARGET CELLS FEW; TOTAL CELLS COUNTED 100 #CELLS
[2016-08-19 07:27] LABS: PLATELET SUFFICIENCY NORMAL (NORMAL)
[2016-08-20] VITALS (14 sets, daily range): BP systolic 110–185; BP diastolic 68–125
[2016-08-20 05:46] LABS: ABG BASE EXCESS -1.8 mmol/L (-2.0-2.0); ABG CO2 CONTENT 23.3 mmol/L (23-27); ABG HCO3 22.1 mmol/l (22-26); ARTERIAL BLOOD GAS PH 7.401 (7.35-7.45)
[2016-08-20 05:51] LABS: HEMATOCRIT 37.8 % (42.0-52.0); HEMOGLOBIN 12.5 g/dl (14.0-18.0); MEAN CELL VOLUME 101.3 fl (80.0-94.0); MEAN CORPUSCULAR HGB 33.5 pg (27.0-31.0); MEAN CORPUSCULAR HGB CONC 33.1 g/dl (33.0-37.0); PLATELET COUNT AUTOMATED 167 10*3/uL (130-400); RED BLOOD COUNT 3.73 10*6/uL (4.50-5.90); RED CELL DISTRI WIDTH 17.1 % (0-14.5)
[2016-08-20 06:09] LABS: BUN 13 mg/dl (7-24); CARBON DIOXIDE 24 mmol/L (21-32); CHLORIDE 116 mmol/L (98-107); EST GLOM FILT AFRICAN AMERICAN > 60 ml/min; GLUCOSE 119 mg/dL (65-99); POTASSIUM 3.3 mmol/L (3.5-5.1); SODIUM 149 mmol/L (136-145)
[2016-08-20 07:00] LABS: MONOCYTE # 1.7 10*3/uL (0.1-1.0); NEUTROPHIL # 6.3 10*3/uL (2.3-7.9); NEUTROPHILS 63 % (47-73); PLATELET SUFFICIENCY NORMAL (NORMAL); TOTAL CELLS COUNTED 100 #CELLS
[2016-08-21] VITALS (12 sets, daily range): BP systolic 111–161; BP diastolic 71–103
[2016-08-21 05:52] LABS: ABG BASE EXCESS 2.1 mmol/L (-2.0-2.0); ABG CO2 CONTENT 27.8 mmol/L (23-27); ABG HCO3 26.5 mmol/l (22-26); ARTERIAL BLOOD GAS PH 7.414 (7.35-7.45); ARTERIAL BLOOD GAS PO2 98.2 mmHg (80-90)
[2016-08-21 06:09] LABS: BUN 15 mg/dl (7-24); CARBON DIOXIDE 26 mmol/L (21-32); CHLORIDE 112 mmol/L (98-107); EST GLOM FILT AFRICAN AMERICAN > 60 ml/min; GLUCOSE 125 mg/dL (65-99); HEMATOCRIT 43.6 % (42.0-52.0); HEMOGLOBIN 14.2 g/dl (14.0-18.0); MEAN CELL VOLUME 102.6 fl (80.0-94.0); MEAN CORPUSCULAR HGB 33.4 pg (27.0-31.0); MEAN CORPUSCULAR HGB CONC 32.6 g/dl (33.0-37.0); MEAN PLATELET VOLUME 12.6 fl (9.6-12.3); PLATELET COUNT AUTOMATED 181 10*3/uL (130-400); POTASSIUM 3.3 mmol/L (3.5-5.1); RED BLOOD COUNT 4.25 10*6/uL (4.50-5.90); RED CELL DISTRI WIDTH 17.5 % (0-14.5); SODIUM 147 mmol/L (136-145); WHITE BLOOD COUNT 9.7 10*3/uL (4.8-10.8)
[2016-08-21 07:34] LABS: BURR CELLS MODERATE; EOSINOPHIL # 0.3 10*3/uL (0-0.4); EOSINOPHILS 3 % (1-4); LYMPHOCYTE # 2.9 10*3/uL (1.3-4.4); METAMYELOCYTES 1 % (0-0); MYELOCYTES 1 % (0-0); NEUTROPHIL # 5.3 10*3/uL (2.3-7.9); NEUTROPHILS 55 % (47-73); PLATELET SUFFICIENCY NORMAL (NORMAL); TOTAL CELLS COUNTED 100 #CELLS
[2016-08-22] VITALS (12 sets, daily range): BP systolic 110–160; BP diastolic 64–98
[2016-08-22 05:45] LABS: ALBUMIN 1.9 gm/dl (3.1-4.5); ALKALINE PHOSPHATASE 57 U/L (45-117); BILIRUBIN, TOTAL 0.5 mg/dl (0.2-1.0); BUN 17 mg/dl (7-24); CARBON DIOXIDE 26 mmol/L (21-32); CHLORIDE 111 mmol/L (98-107); EST GLOM FILT AFRICAN AMERICAN > 60 ml/min; GLUCOSE 166 mg/dL (65-99); MAGNESIUM 2.2 mg/dL (1.5-2.1); PHOSPHOROUS 2.9 mg/dL (2.5-4.9); POTASSIUM 3.5 mmol/L (3.5-5.1); SGOT/AST 17 IU/L (3-35); SGPT/ALT 13 U/L (12-78); SODIUM 145 mmol/L (136-145); TOTAL PROTEIN 6.2 gm/dL (6.4-8.2)
[2016-08-22 06:00] LABS: BASO # 0.1 10*3/uL (0.0-0.1); BASO % 0.7 % (0.0-1.0); EOS # 0.1 10*3/uL (0.0-0.4); EOS % 1.6 % (1.0-4.0); HEMATOCRIT 38.8 % (42.0-52.0); HEMOGLOBIN 12.7 g/dl (14.0-18.0); IG # 0.1 10*3/uL (0.0-0.1); LYMPH # 1.7 10*3/uL (1.3-4.4); LYMPH % 19.3 % (27.0-41.0); MEAN CELL VOLUME 100.3 fl (80.0-94.0); MEAN CORPUSCULAR HGB 32.8 pg (27.0-31.0); MEAN CORPUSCULAR HGB CONC 32.7 g/dl (33.0-37.0); MEAN PLATELET VOLUME 12.4 fl (9.6-12.3); MONO # 1.2 10*3/uL (0.1-1.0); MONO % 13.5 % (3.0-9.0); NEUT # 5.5 10*3/uL (2.3-7.9); NEUT % 64.2 % (47.0-73.0); PLATELET COUNT AUTOMATED 180 10*3/uL (130-400); RED BLOOD COUNT 3.87 10*6/uL (4.50-5.90); RED CELL DISTRI WIDTH 17.1 % (0-14.5); WHITE BLOOD COUNT 8.6 10*3/uL (4.8-10.8)
[2016-08-22 17:08] LABS: ABG BASE EXCESS 2.5 mmol/L (-2.0-2.0); ABG CO2 CONTENT 27.9 mmol/L (23-27); ABG HCO3 26.7 mmol/l (22-26); ARTERIAL BLOOD GAS PH 7.427 (7.35-7.45)
[2016-08-23] VITALS (9 sets, daily range): BP systolic 152–179; BP diastolic 91–114
[2016-08-23 05:38] LABS: ABG BASE EXCESS 2.4 mmol/L (-2.0-2.0); ABG CO2 CONTENT 27.1 mmol/L (23-27); ABG TEMPERATURE 98.5 F (98.0-99.0); ARTERIAL BLOOD GAS PH 7.449 (7.35-7.45); ARTERIAL BLOOD GAS PO2 93.3 mmHg (80-90)
[2016-08-23 06:07] LABS: BASO % 0.3 % (0.0-1.0); HEMOGLOBIN 12.3 g/dl (14.0-18.0); IG # 0.2 10*3/uL (0.0-0.1); LYMPH # 0.8 10*3/uL (1.3-4.4); MEAN CELL VOLUME 98.7 fl (80.0-94.0); MEAN CORPUSCULAR HGB 32.8 pg (27.0-31.0); MEAN CORPUSCULAR HGB CONC 33.2 g/dl (33.0-37.0); MONO # 0.1 10*3/uL (0.1-1.0); MONO % 1.9 % (3.0-9.0); NEUT # 4.7 10*3/uL (2.3-7.9); NEUT % 81.2 % (47.0-73.0); PLATELET COUNT AUTOMATED 197 10*3/uL (130-400); RED BLOOD COUNT 3.75 10*6/uL (4.50-5.90); RED CELL DISTRI WIDTH 16.5 % (0-14.5); WHITE BLOOD COUNT 5.8 10*3/uL (4.8-10.8)
[2016-08-23 06:41] LABS: CHLORIDE 108 mmol/L (98-107); POTASSIUM 3.9 mmol/L (3.5-5.1); SODIUM 144 mmol/L (136-145)
[2016-08-23 06:49] LABS: ALBUMIN 2.3 gm/dl (3.1-4.5); ALKALINE PHOSPHATASE 56 U/L (45-117); BILIRUBIN, TOTAL 0.4 mg/dl (0.2-1.0); BUN 19 mg/dl (7-24); CARBON DIOXIDE 25 mmol/L (21-32); EST GLOM FILT AFRICAN AMERICAN > 60 ml/min; GLUCOSE 265 mg/dL (65-99); SGOT/AST 20 IU/L (3-35); SGPT/ALT 16 U/L (12-78); TOTAL PROTEIN 6.7 gm/dL (6.4-8.2)
[2016-08-23 11:29] LABS: ABG BASE EXCESS 2.7 mmol/L (-2.0-2.0); ABG CO2 CONTENT 26.9 mmol/L (23-27); ABG HCO3 25.8 mmol/l (22-26); ARTERIAL BLOOD GAS PH 7.479 (7.35-7.45)
[2016-08-24] VITALS: BP 144/90
[2016-08-24 04:00] VITALS: BP 165/96
[2016-08-24 05:59] LABS: ALBUMIN 2.7 gm/dl (3.1-4.5); ALKALINE PHOSPHATASE 50 U/L (45-117); BILIRUBIN, TOTAL 0.5 mg/dl (0.2-1.0); BUN 23 mg/dl (7-24); CARBON DIOXIDE 29 mmol/L (21-32); CHLORIDE 107 mmol/L (98-107); EST GLOM FILT AFRICAN AMERICAN > 60 ml/min; GLUCOSE 190 mg/dL (65-99); PHOSPHOROUS 2.5 mg/dL (2.5-4.9); POTASSIUM 3.2 mmol/L (3.5-5.1); SGOT/AST 20 IU/L (3-35); SGPT/ALT 24 U/L (12-78); SODIUM 141 mmol/L (136-145); TOTAL PROTEIN 7.1 gm/dL (6.4-8.2)
[2016-08-24 06:16] LABS: BASO % 0.1 % (0.0-1.0); HEMATOCRIT 36.8 % (42.0-52.0); HEMOGLOBIN 12.3 g/dl (14.0-18.0); IG # 0.1 10*3/uL (0.0-0.1); LYMPH # 1.1 10*3/uL (1.3-4.4); LYMPH % 15.8 % (27.0-41.0); MEAN CELL VOLUME 97.6 fl (80.0-94.0); MEAN CORPUSCULAR HGB 32.6 pg (27.0-31.0); MEAN CORPUSCULAR HGB CONC 33.4 g/dl (33.0-37.0); MEAN PLATELET VOLUME 12.4 fl (9.6-12.3); MONO # 0.2 10*3/uL (0.1-1.0); MONO % 2.9 % (3.0-9.0); NEUT # 5.5 10*3/uL (2.3-7.9); NEUT % 79.9 % (47.0-73.0); PLATELET COUNT AUTOMATED 244 10*3/uL (130-400); RED BLOOD COUNT 3.77 10*6/uL (4.50-5.90); RED CELL DISTRI WIDTH 16.4 % (0-14.5); WHITE BLOOD COUNT 6.9 10*3/uL (4.8-10.8)
[2016-08-24 08:00] VITALS: BP 157/90
[2016-08-24 09:53] LABS: ABG BASE EXCESS 3.4 mmol/L (-2.0-2.0); ABG CO2 CONTENT 27.3 mmol/L (23-27); ABG HCO3 26.2 mmol/l (22-26); ABG TEMPERATURE 98.2 F (98.0-99.0); ARTERIAL BLOOD GAS PH 7.489 (7.35-7.45); ARTERIAL BLOOD GAS PO2 81.5 mmHg (80-90)
[2016-08-24 12:00] VITALS: BP 137/71
[2016-08-24 16:00] VITALS: BP 179/104
[2016-08-24 20:00] VITALS: BP 179/102
[2016-08-25] VITALS (8 sets, daily range): BP systolic 155–190; BP diastolic 84–120
[2016-08-25 05:46] LABS: ALBUMIN 2.9 gm/dl (3.1-4.5); ALKALINE PHOSPHATASE 54 U/L (45-117); BILIRUBIN, TOTAL 0.6 mg/dl (0.2-1.0); BUN 27 mg/dl (7-24); CARBON DIOXIDE 25 mmol/L (21-32); CHLORIDE 107 mmol/L (98-107); EST GLOM FILT AFRICAN AMERICAN > 60 ml/min; GLUCOSE 224 mg/dL (65-99); POTASSIUM 3.4 mmol/L (3.5-5.1); SGOT/AST 24 IU/L (3-35); SGPT/ALT 36 U/L (12-78); SODIUM 144 mmol/L (136-145); TOTAL PROTEIN 7.5 gm/dL (6.4-8.2)
[2016-08-25 06:13] LABS: BASO % 0.1 % (0.0-1.0); HEMATOCRIT 40.7 % (42.0-52.0); HEMOGLOBIN 13.9 g/dl (14.0-18.0); IG # 0.1 10*3/uL (0.0-0.1); LYMPH # 1.1 10*3/uL (1.3-4.4); LYMPH % 15.9 % (27.0-41.0); MEAN CELL VOLUME 96.2 fl (80.0-94.0); MEAN CORPUSCULAR HGB 32.9 pg (27.0-31.0); MEAN CORPUSCULAR HGB CONC 34.2 g/dl (33.0-37.0); MEAN PLATELET VOLUME 12.1 fl (9.6-12.3); MONO # 0.5 10*3/uL (0.1-1.0); MONO % 6.8 % (3.0-9.0); NEUT # 5.2 10*3/uL (2.3-7.9); NEUT % 75.2 % (47.0-73.0); NUCLEATED RED BLOOD CELL 0.3 % (0.0-0.0); PLATELET COUNT AUTOMATED 290 10*3/uL (130-400); RED BLOOD COUNT 4.23 10*6/uL (4.50-5.90); WHITE BLOOD COUNT 6.9 10*3/uL (4.8-10.8)
[2016-08-25 10:10] LABS: ABG BASE EXCESS 1.8 mmol/L (-2.0-2.0); ABG CO2 CONTENT 25.6 mmol/L (23-27); ABG HCO3 24.6 mmol/l (22-26); ARTERIAL BLOOD GAS PH 7.472 (7.35-7.45)
[2016-08-26] VITALS: BP 153/89
[2016-08-26 04:00] VITALS: BP 125/87
[2016-08-26 05:39] LABS: CARBON DIOXIDE 25 mmol/L (21-32); CHLORIDE 111 mmol/L (98-107); EST GLOM FILT AFRICAN AMERICAN > 60 ml/min; GLUCOSE 140 mg/dL (65-99); POTASSIUM 3.5 mmol/L (3.5-5.1); SODIUM 147 mmol/L (136-145)
[2016-08-26 05:42] LABS: BUN 37 mg/dl (7-24)
[2016-08-26 06:04] LABS: BASO % 0.1 % (0.0-1.0); HEMATOCRIT 41.5 % (42.0-52.0); IG # 0.1 10*3/uL (0.0-0.1); LYMPH # 2.1 10*3/uL (1.3-4.4); LYMPH % 17.5 % (27.0-41.0); MEAN CELL VOLUME 98.1 fl (80.0-94.0); MEAN CORPUSCULAR HGB 33.1 pg (27.0-31.0); MEAN CORPUSCULAR HGB CONC 33.7 g/dl (33.0-37.0); MEAN PLATELET VOLUME 11.6 fl (9.6-12.3); MONO # 1.4 10*3/uL (0.1-1.0); MONO % 11.4 % (3.0-9.0); NEUT # 8.4 10*3/uL (2.3-7.9); NEUT % 70.4 % (47.0-73.0); NUCLEATED RED BLOOD CELL 0.1 10*3/uL (0.0-0.0); NUCLEATED RED BLOOD CELL 0.4 % (0.0-0.0); PLATELET COUNT AUTOMATED 294 10*3/uL (130-400); RED BLOOD COUNT 4.23 10*6/uL (4.50-5.90); RED CELL DISTRI WIDTH 16.5 % (0-14.5); WHITE BLOOD COUNT 11.9 10*3/uL (4.8-10.8)
[2016-08-26 08:00] VITALS: BP 126/83
[2016-08-26 11:58] VITALS: BP 132/88
[2016-08-26] MEDS ORDERED: RIVASTIGMINE1 EAC1 T (14:26)
[2016-08-26] MEDS ORDERED: AMLODIPINE BESY1 TAB PO (14:26)
[2016-08-26 16:00] VITALS: BP 133/84
[2016-08-26 20:00] VITALS: BP 151/96
[2016-08-27] VITALS: BP 150/90
[2016-08-27 05:59] LABS: BASO % 0.1 % (0.0-1.0); EOS % 0.3 % (1.0-4.0); HEMATOCRIT 41.9 % (42.0-52.0); HEMOGLOBIN 14.1 g/dl (14.0-18.0); IG # 0.1 10*3/uL (0.0-0.1); LYMPH # 2.4 10*3/uL (1.3-4.4); LYMPH % 27.2 % (27.0-41.0); MEAN CELL VOLUME 99.8 fl (80.0-94.0); MEAN CORPUSCULAR HGB 33.6 pg (27.0-31.0); MEAN CORPUSCULAR HGB CONC 33.7 g/dl (33.0-37.0); MEAN PLATELET VOLUME 11.5 fl (9.6-12.3); MONO # 0.9 10*3/uL (0.1-1.0); MONO % 9.8 % (3.0-9.0); NEUT # 5.5 10*3/uL (2.3-7.9); NEUT % 61.9 % (47.0-73.0); NUCLEATED RED BLOOD CELL 0.3 % (0.0-0.0); PLATELET COUNT AUTOMATED 302 10*3/uL (130-400); RED CELL DISTRI WIDTH 16.6 % (0-14.5); WHITE BLOOD COUNT 8.8 10*3/uL (4.8-10.8)
[2016-08-27 06:24] LABS: BUN 37 mg/dl (7-24); CARBON DIOXIDE 30 mmol/L (21-32); CHLORIDE 113 mmol/L (98-107); EST GLOM FILT AFRICAN AMERICAN > 60 ml/min; GLUCOSE 143 mg/dL (65-99); POTASSIUM 3.5 mmol/L (3.5-5.1); SODIUM 150 mmol/L (136-145)
[2016-08-27 08:00] VITALS: BP 133/88
[2016-08-27 09:08] LABS: ABG BASE EXCESS 2.5 mmol/L (-2.0-2.0); ABG CO2 CONTENT 27.6 mmol/L (23-27); ABG HCO3 26.4 mmol/l (22-26); ABG TEMPERATURE 97.4 F (98.0-99.0); ARTERIAL BLOOD GAS PH 7.445 (7.35-7.45); ARTERIAL BLOOD GAS PO2 98.6 mmHg (80-90)
[2016-08-27 10:58] LABS: ALBUMIN 2.8 gm/dl (3.1-4.5); BILIRUBIN, DIRECT 0.2 mg/dL (0.0-0.2); BILIRUBIN, TOTAL 0.6 mg/dl (0.2-1.0); TOTAL PROTEIN 6.8 gm/dL (6.4-8.2)
[2016-08-27 12:00] VITALS: BP 154/97
[2016-08-27 16:00] VITALS: BP 163/111
[2016-08-27 18:18] VITALS: BP 152/95
== END 2016-08-27 19:12 | disposition short-term general hospital (02) | DRG 853 ==
LOC: ED 17:25 → EDSTATUS 17:25 → ED 17:25 → ICCU 21:26 → EDHOLD 21:26 → 4E 21:26 → ICCU 08-18 17:21 → 4E 08-26 19:30
PROVIDERS: Emergency Medicine; Family Medicine; Internal Medicine; Internal Medicine Critical Care Medicine; Student in an Organized Health Care Education/Training Program
DX: A41.9 Sepsis, unspecified organism (principal); E43 Unspecified severe protein-calorie malnutrition; J96.00 Acute respiratory failure, unspecified whether with hypoxia or hypercapnia; G93.41 Metabolic encephalopathy; E87.0 Hyperosmolality and hypernatremia; E11.65 Type 2 diabetes mellitus with hyperglycemia; G30.9 Alzheimer's disease, unspecified; F02.81 Dementia in other diseases classified elsewhere, unspecified severity, with behavioral disturbance; D53.1 Other megaloblastic anemias, not elsewhere classified; R13.10 Dysphagia, unspecified; J98.11 Atelectasis; M27.8 Other specified diseases of jaws; G89.29 Other chronic pain; E78.5 Hyperlipidemia, unspecified; I10 Essential (primary) hypertension; Z88.8 Allergy status to other drugs, medicaments and biological substances; Z68.32 Body mass index [BMI] 32.0-32.9, adult; E86.0 Dehydration; E55.9 Vitamin D deficiency, unspecified; F25.9 Schizoaffective disorder, unspecified; K02.9 Dental caries, unspecified; R22.1 Localized swelling, mass and lump, neck; N40.0 Benign prostatic hyperplasia without lower urinary tract symptoms; K12.1 Other forms of stomatitis; K04.7 Periapical abscess without sinus; E87.6 Hypokalemia; E66.9 Obesity, unspecified